=== PATIENT | female | born 1965 | race Caucasian/White ===

== ENCOUNTER 2017-09-24 08:55 | Day surgery (SDC) | payer OTHER ==
[2017-09-24] MEDS: NS 1,000 ML IV (09:41)
[2017-09-24] MEDS ORDERED: LIDOCAINE 2% INJ 100 MG/5 ML SDV (FOR ANES.) As Ordered (10:01)
[2017-09-24] MEDS ORDERED: PROPOFOL 200 MG/20 ML VIAL As Ordered (10:01)
[2017-09-24] MEDS ORDERED: fentaNYL 100 MCG/2 ML INJECTION (J3010) As Ordered (10:12)
== END 2017-09-24 10:50 | disposition home or self-care (01) ==
LOC: M OPP 08:55
DX: K22.70 Barrett's esophagus without dysplasia (principal); K22.8 Other specified diseases of esophagus; I10 Essential (primary) hypertension; R12 Heartburn; K21.9 Gastro-esophageal reflux disease without esophagitis; M19.90 Unspecified osteoarthritis, unspecified site; M54.5 Low back pain; R51 Headache; F17.210 Nicotine dependence, cigarettes, uncomplicated; Z79.899 Other long term (current) drug therapy
CPT/HCPCS: 43239

== ENCOUNTER → 2017-11-08 | Outpatient (REF) | payer OTHER ==
[2017-11-08 19:25] LABS: APPEARANCE, URINE HAZY (CLEAR); BACTERIA, URINE AUTO NEGATIVE (NEGATIVE); BILIRUBIN, URINE AUTO NEGATIVE (NEGATIVE); BLOOD, URINE BLOOD 2+ (NEGATIVE); COLOR, URINE STRAW (YELLOW); GLUCOSE, URINE (UA) AUTO NEGATIVE (NEGATIVE); KETONE, URINE AUTO NEGATIVE (NEGATIVE); LEUKOCYTE ESTERASE, URINE AUTO NEGATIVE (NEGATIVE); NITRITE, URINE AUTO NEGATIVE (NEGATIVE); PROTEIN, URINE AUTO NEGATIVE (NEGATIVE); RBC, URINE AUTO 0 /HPF (0-3); SPECIFIC GRAVITY URINE AUTO 1.006 (1.002-1.035); SQUAMOUS EPITHELIAL CELL UR AU 2 /HPF (0-6); UROBILINOGEN, URINE AUTO 0.2 mg/dL (0.0-2.0); WBC, URINE AUTO 1 /HPF (0-3)
== END ==
LOC: M SMT 17:07
DX: R31.0 Gross hematuria (principal)

== ENCOUNTER → 2021-03-31 | Outpatient (CLI) | payer OTHER ==
[~2021-03-31] MED LIST: ATEN25TA PO; BACL10TA2 PO; CARA1TAB6 PO; CELE1CAP4 PO; DULO1CAP6 PO; FLEX10TA2 PO; GABA600T4 PO; HYDR-3490 PO; LEXA1TAB PO; LISI10TA22 PO; LISI20TA20; OMEP-221; OMEP20CA3 PO; PANT40TA29 PO; TIZA4CAP PO; TOPI25TA10; ZEST20TA8 PO
== END ==
LOC: M LABSMTC 10:42
PROVIDERS: ATTEND Anesthesiology
DX: Z01.812 Encounter for preprocedural laboratory examination (principal); Z20.822 Contact with and (suspected) exposure to COVID-19

== ENCOUNTER 2021-04-04 07:27 | Day surgery (SDC) | payer OTHER ==
[~2021-04-04] VITALS: Ht 162.6 cm; Wt 88.4 kg
[~2021-04-04 07:27] MED LIST changes: +LIDOCAINE 2% 100MG/5ML SDV (FOR ANES.) As Ordered ONE; +NS 1,000 ML IV ONE; +propofoL 200 MG/20 ML VIAL As Ordered ONE
[2021-04-04] MEDS ORDERED: propofoL 200 MG/20 ML VIAL As Ordered ONE (08:51)
--- NOTE | 2021-04-04 08:55 | ROOR ---
Patient Name: Chloe Steele Procedure Date: 04/04/2021 8:34 AM Date of : 1965 Age: 56 Room: [facility] Gender: Female Note Status: Finalized Procedure: Upper GI endoscopy Indications: Surveillance for malignancy due to personal history of Cedeño's esophagus, Heartburn Providers: Mayco Swift MD Referring MD: Wolf Clemens Do Requesting Provider: Medicines: Monitored Anesthesia Care Complications: No immediate complications. Procedure: Pre-Anesthesia Assessment: - The heart rate, respiratory rate, oxygen saturations, blood pressure, adequacy of pulmonary ventilation, and response to care were monitored throughout the procedure. The Endoscope was introduced through the mouth, and advanced to the second part of duodenum. The upper GI endoscopy was accomplished without difficulty. The patient tolerated the procedure well. Findings: There were esophageal mucosal changes secondary to established short-segment Cedeño's disease present at the gastroesophageal junction. The maximum longitudinal extent of these mucosal changes was 0.8 cm in length. Mucosa was biopsied with a cold forceps for histology. The exam of the esophagus was otherwise normal. A small hiatal hernia is seen. The entire examined stomach was otherwise wnormal. The examined duodenum was normal. Impression: - Esophageal mucosal changes secondary to established short-segment Cedeño's disease. Biopsied. - Normal stomach with a very small sliding hiatal hernia. - Normal examined duodenum. Recommendation: - Use Prilosec (omeprazole) 40 mg PO BID indefinitely. - Repeat EGD in 3 years. - Eat smaller, more frequent meals throughout the day. - Low fat diet. - Liquid/soft foods are tolerated better than solid foods. - Low fiber/well cooked vegetables are tolerated better than high fiber/fibrous foods/raw vegetables. - Avoid medications that inhibit gastric/intestinal motility such as narcotic medications. Procedure Code(s): --- Professional --- 58729, Esophagogastroduodenoscopy, flexible, transoral; with biopsy, single or multiple Diagnosis Code(s): --- Professional --- R12, Heartburn K22.70, Cedeño's esophagus without dysplasia CPT copyright 2019 [employer] [place] [employer]. All rights reserved. The codes documented in this report are preliminary and upon refrigerator tester review may be revised to meet current compliance requirements. Mayco Swift MD Mayco Swift MD 04/04/2021 8:54:52 AM Electronically signed by Mayco Swift MD Number of Addenda: 0 Note Initiated On: 04/04/2021 8:34 AM Estimated Blood Loss: Estimated blood loss: none.
--- NOTE | 2021-04-04 09:12 | ROOR ---
Patient Name: Chloe Steele Procedure Date: 04/04/2021 8:37 AM Date of : 1965 Age: 56 Room: [facility] Gender: Female Note Status: Finalized Procedure: Colonoscopy Indications: High risk colon cancer surveillance: Personal history of colonic polyps, Family history of colon cancer in a first-degree relative before age 60 years Providers: Mayco Swift MD Referring MD: Wolf Clemens Do Requesting Provider: Medicines: Monitored Anesthesia Care Complications: No immediate complications. Procedure: Pre-Anesthesia Assessment: - The heart rate, respiratory rate, oxygen saturations, blood pressure, adequacy of pulmonary ventilation, and response to care were monitored throughout the procedure. The Colonoscope was introduced through the anus and advanced to the cecum, identified by appendiceal orifice and ileocecal valve. The colonoscopy was performed without difficulty. The patient tolerated the procedure well. The quality of the bowel preparation was good. Findings: The perianal and digital rectal examinations were normal. Two sessile polyps were found in the descending colon. The polyps were 4 to 5 mm in size. These polyps were removed with a cold snare. Resection and retrieval were complete. Small Internal Hemorrhoids. The exam was otherwise without abnormality on direct and retroflexion views. Impression: - Two 4 to 5 mm polyps in the descending colon, removed with a cold snare. Resected and retrieved. - Small Internal Hemorrhoids. - The examination was otherwise normal on direct and retroflexion views. Recommendation: - Repeat colonoscopy in 3 years for surveillance. - (colon polyps/Family history) Procedure Code(s): --- Professional --- 70522, Colonoscopy, flexible; with removal of tumor(s), polyp(s), or other lesion(s) by snare technique Diagnosis Code(s): --- Professional --- Z80.0, Family history of malignant neoplasm of digestive organs K63.5, Polyp of colon Z86.010, Personal history of colonic polyps CPT copyright 2019 [employer]. All rights reserved. The codes documented in this report are preliminary and upon pit boss review may be revised to meet current compliance requirements. Mayco Swift MD Mayco Swift MD 04/04/2021 9:12:19 AM Electronically signed by Mayco Swift MD Number of Addenda: 0 Note Initiated On: 04/04/2021 8:37 AM Estimated Blood Loss: Estimated blood loss: none.
[2021-04-04 09:30] VITALS: BP 112/58
== END 2021-04-04 09:42 | disposition home or self-care (01) ==
LOC: M OPP 07:27
PROVIDERS: ATTEND Internal Medicine Gastroenterology
DX: Z12.11 Encounter for screening for malignant neoplasm of colon (principal); Z80.0 Family history of malignant neoplasm of digestive organs; D12.4 Benign neoplasm of descending colon; K64.8 Other hemorrhoids; K22.70 Barrett's esophagus without dysplasia; J44.9 Chronic obstructive pulmonary disease, unspecified; R12 Heartburn; F17.210 Nicotine dependence, cigarettes, uncomplicated; Z79.899 Other long term (current) drug therapy